=== PATIENT | male | born 1935 | race Caucasian/White ===

== ENCOUNTER 2018-06-21 15:29 | Emergency (ER) | payer MEDICARE ==
[~2018-06-21] VITALS: Ht 160 cm; Wt 77.1 kg
[2018-06-21] MEDS ORDERED: Omeprazole20 M1 (15:54)
[2018-06-21] MEDS ORDERED: TRIA50 (15:54)
[2018-06-21] MEDS ORDERED: TAMS.4ER (15:54)
[2018-06-21 16:10] LABS: BASOPHILS ABSOLUTE AUTO 0.03 K/mm3 (0.00-0.23); BASOPHILS PERCENT AUTO 0 % (0-2); EOSINOPHILS ABSOLUTE AUTO 0.11 K/mm3 (0.00-0.68); EOSINOPHILS PERCENT AUTO 1 % (0-6); Hematocrit 36.6 % (37.0-53.0); Hemoglobin 12.7 g/dL (13.5-17.5); IMMATURE GRAN ABSOLUTE AUTO 0.13 K/mm3 (0.00-0.10); IMMATURE GRAN PERCENT AUTO 1 % (0-1); LYMPHOCYTES ABSOLUTE AUTO 0.78 K/mm3 (0.84-5.20); LYMPHOCYTES PERCENT AUTO 5 % (21-46); MONOCYTES ABSOLUTE AUTO 0.31 K/mm3 (0.16-1.47); MONOCYTES PERCENT AUTO 2 % (4-13); Mean Corpuscular HGB 33.5 pg (26.0-34.0); Mean Corpuscular HGB Conc 34.7 g/dL (31.5-36.5); Mean Corpuscular Volume 97 fL (80-100); Mean Platelet Volume 11.9 fL (9.1-12.4); NEUTROPHILS ABSOLUTE AUTO 14.78 K/mm3 (1.96-9.15); NEUTROPHILS PERCENT AUTO 92 % (41-73); Platelet Count 180 K/mm3 (150-400); RDW Coefficient Variation 13.2 % (11.7-14.2); RDW Standard Deviation 46.5 fL (35.1-46.3); Red Blood Cell Count 3.79 M/mm3 (4.30-5.90); White Blood Cell Count 16.14 K/mm3 (4.00-11.30)
[2018-06-21 16:24] LABS: Alanine Aminotransfer (ALT/SGP 649 U/L (12-78); Albumin, Blood 3.8 g/dL (3.4-5.0); Albumin/Globulin Ratio 1.3 (0.8-1.8); Alk Phos 283 U/L (50-136); Anion Gap 10 mmol/L (6-16); Aspartate Aminotrans (AST/SGOT 601 U/L (12-37); Bilirubin, Total 3.6 mg/dL (0.1-1.0); Blood Urea Nitrogen 28 mg/dL (8-24); Bun/Creatinine Ratio 17.8 (12.0-20.0); CO2, Blood 22 mmol/L (21-32); Calcium, Blood 8.6 mg/dL (8.5-10.1); Chloride, Blood 103 mmol/L (98-108); Creatinine, Blood 1.57 mg/dL (0.60-1.20); Glomerular Filtration Rate 45 (60-); Glucose, Blood 181 mg/dL (70-99); Potassium, Blood 3.7 mmol/L (3.5-5.5); Sodium, Blood 135 mmol/L (136-145); Total Protein, Blood 6.8 g/dL (6.4-8.2); Troponin I <0.015 ng/mL (0.000-0.040)
== END 2018-06-21 21:02 | disposition short-term general hospital (02) ==
LOC: ER 15:29
PROVIDERS: Emergency Medicine
DX: K80.50 Calculus of bile duct without cholangitis or cholecystitis without obstruction (principal); K85.90 Acute pancreatitis without necrosis or infection, unspecified; C61 Malignant neoplasm of prostate; C78.01 Secondary malignant neoplasm of right lung; C79.89 Secondary malignant neoplasm of other specified sites; I10 Essential (primary) hypertension; Z79.899 Other long term (current) drug therapy
CPT/HCPCS: 36415; 70450; 71045; 74176; 80053; 83605; 83690; 84484; 85025; 87040; 93005; 93010; 96361; 96365; 96375; 96376; 99285-25; J0295; J2405; J3010; J7120

== ENCOUNTER → 2020-04-30 | Outpatient (CLI) | payer MEDICARE ==
[~2020-04-30] MED LIST: Acetaminophen650 M1 PO; Aspir 8181 MG PO; CARV3.125 PO; DYAZIDE 37.5-21 EACH PO; LUPRON DEPOT45 M1 IM; OMEP20ER PO; Omeprazole20 M1; Prinivil10 MG PO; TAMS.4ER; TAMS.4ER PO; TRIA50
[2020-04-30 18:32] LABS: BASOPHILS ABSOLUTE AUTO 0.04 K/mm3 (0.00-0.23); BASOPHILS PERCENT AUTO 1 % (0-2); EOSINOPHILS ABSOLUTE AUTO 0.24 K/mm3 (0.00-0.68); EOSINOPHILS PERCENT AUTO 3 % (0-6); Hematocrit 33.1 % (37.0-53.0); Hemoglobin 11.5 g/dL (13.5-17.5); IMMATURE GRAN ABSOLUTE AUTO 0.16 K/mm3 (0.00-0.10); IMMATURE GRAN PERCENT AUTO 2 % (0-1); LYMPHOCYTES ABSOLUTE AUTO 0.98 K/mm3 (0.84-5.20); LYMPHOCYTES PERCENT AUTO 13 % (21-46); MONOCYTES ABSOLUTE AUTO 0.81 K/mm3 (0.16-1.47); MONOCYTES PERCENT AUTO 11 % (4-13); Mean Corpuscular HGB 33.7 pg (26.0-34.0); Mean Corpuscular HGB Conc 34.7 g/dL (31.5-36.5); Mean Corpuscular Volume 97 fL (80-100); Mean Platelet Volume 11.6 fL (9.1-12.4); NEUTROPHILS ABSOLUTE AUTO 5.32 K/mm3 (1.96-9.15); NEUTROPHILS PERCENT AUTO 71 % (41-73); Platelet Count 230 K/mm3 (150-400); RDW Standard Deviation 49.1 fL (35.1-46.3); Red Blood Cell Count 3.41 M/mm3 (4.30-5.90); White Blood Cell Count 7.55 K/mm3 (4.00-11.30)
[2020-04-30 19:16] LABS: Alanine Aminotransfer (ALT/SGP 14 U/L (12-78); Albumin, Blood 3.7 g/dL (3.4-5.0); Albumin/Globulin Ratio 1.2 (0.8-1.8); Alk Phos 64 U/L (50-136); Anion Gap 10 mmol/L (6-16); Aspartate Aminotrans (AST/SGOT 14 U/L (12-37); Blood Urea Nitrogen 25 mg/dL (8-24); Bun/Creatinine Ratio 26.9 (12.0-20.0); CO2, Blood 19 mmol/L (21-32); Calcium, Blood 8.8 mg/dL (8.5-10.1); Chloride, Blood 106 mmol/L (98-108); Creatinine, Blood 0.93 mg/dL (0.60-1.20); Globulin, Blood 3.1 g/dL (2.2-4.0); Glomerular Filtration Rate >60 (60-); Glucose, Blood 96 mg/dL (70-99); Potassium, Blood 3.9 mmol/L (3.5-5.5); Sodium, Blood 135 mmol/L (136-145); Total Protein, Blood 6.8 g/dL (6.4-8.2)
== END | disposition home or self-care (01) ==
LOC: LAB 17:41 → LAB SHORT 17:41
PROVIDERS: Family Medicine
DX: I10 Essential (primary) hypertension (principal)
CPT/HCPCS: 80053; 85025

== ENCOUNTER 2020-12-14 09:40 | Day surgery (SDC) | payer MEDICARE ==
[~2020-12-14] VITALS: Ht 154.9 cm; Wt 69.0 kg
== END 2020-12-14 12:59 | disposition home or self-care (01) ==
LOC: ORSCSDS 09:40
PROVIDERS: Student in an Organized Health Care Education/Training Program
PROC: 0DBK8ZX Excision of Ascending Colon, Via Natural or Artificial Opening Endoscopic, Diagnostic (ICD-10-PCS; principal; 2020-12-14 11:00)
PROC: 0DBM8ZX Excision of Descending Colon, Via Natural or Artificial Opening Endoscopic, Diagnostic (ICD-10-PCS; principal; 2020-12-14 11:00)
PROC: 0DBL8ZX Excision of Transverse Colon, Via Natural or Artificial Opening Endoscopic, Diagnostic (ICD-10-PCS; principal; 2020-12-14 11:00)
PROC: 0DBN8ZX Excision of Sigmoid Colon, Via Natural or Artificial Opening Endoscopic, Diagnostic (ICD-10-PCS; principal; 2020-12-14 11:00)
PROC: 0DBP8ZX Excision of Rectum, Via Natural or Artificial Opening Endoscopic, Diagnostic (ICD-10-PCS; principal; 2020-12-14 11:00)
PROC: 0DBH8ZX Excision of Cecum, Via Natural or Artificial Opening Endoscopic, Diagnostic (ICD-10-PCS; principal; 2020-12-14 11:00)
DX: R19.5 Other fecal abnormalities (principal); K52.831 Collagenous colitis; D12.3 Benign neoplasm of transverse colon; K62.1 Rectal polyp; K57.30 Diverticulosis of large intestine without perforation or abscess without bleeding; K64.8 Other hemorrhoids; I10 Essential (primary) hypertension; Z87.891 Personal history of nicotine dependence
CPT/HCPCS: 88305; 88313; 93005; 93010; J2405; J2704; J7120

== ENCOUNTER → 2021-04-19 | Outpatient (CLI) | payer MEDICARE ==
[2021-04-19 13:44] LABS: BASOPHILS ABSOLUTE AUTO 0.03 K/mm3 (0.00-0.23); BASOPHILS PERCENT AUTO 1 % (0-2); EOSINOPHILS ABSOLUTE AUTO 0.23 K/mm3 (0.00-0.68); EOSINOPHILS PERCENT AUTO 4 % (0-6); Hematocrit 28.3 % (37.0-53.0); Hemoglobin 10.1 g/dL (13.5-17.5); IMMATURE GRAN ABSOLUTE AUTO 0.17 K/mm3 (0.00-0.10); IMMATURE GRAN PERCENT AUTO 3 % (0-1); LYMPHOCYTES ABSOLUTE AUTO 0.89 K/mm3 (0.84-5.20); LYMPHOCYTES PERCENT AUTO 14 % (21-46); MONOCYTES ABSOLUTE AUTO 0.63 K/mm3 (0.16-1.47); MONOCYTES PERCENT AUTO 10 % (4-13); Mean Corpuscular HGB 34.2 pg (26.0-34.0); Mean Corpuscular HGB Conc 35.7 g/dL (31.5-36.5); Mean Corpuscular Volume 96 fL (80-100); Mean Platelet Volume 11.2 fL (9.1-12.4); NEUTROPHILS ABSOLUTE AUTO 4.65 K/mm3 (1.96-9.15); NEUTROPHILS PERCENT AUTO 70 % (41-73); Platelet Count 193 K/mm3 (150-400); RDW Coefficient Variation 13.3 % (11.7-14.2); Red Blood Cell Count 2.95 M/mm3 (4.30-5.90)
[2021-04-19 14:28] LABS: Alanine Aminotransfer (ALT/SGP 14 U/L (12-78); Albumin, Blood 3.6 g/dL (3.4-5.0); Albumin/Globulin Ratio 1.1 (0.8-1.8); Alk Phos 74 U/L (50-136); Anion Gap 9 mmol/L (6-16); Aspartate Aminotrans (AST/SGOT 14 U/L (12-37); Bilirubin, Total 1.1 mg/dL (0.1-1.0); Blood Urea Nitrogen 18 mg/dL (8-24); CO2, Blood 24 mmol/L (21-32); Chloride, Blood 108 mmol/L (98-108); Creatinine, Blood 1.06 mg/dL (0.60-1.20); Ferritin, Serum 210 ng/mL (26-388); Globulin, Blood 3.4 g/dL (2.2-4.0); Glomerular Filtration Rate >60 (60-); Glucose, Blood 118 mg/dL (70-99); Iron Serum 54 ug/dL (65-175); Percent Saturation 21.8 % (20.0-50.0); Potassium, Blood 3.3 mmol/L (3.5-5.5); Sodium, Blood 141 mmol/L (136-145); Total Iron Binding Capacity 248 ug/dL (250-450)
== END ==
LOC: LAB 11:05 → LAB SHORT 11:05
PROVIDERS: Nurse Practitioner Family
DX: D64.9 Anemia, unspecified (principal); R53.83 Other fatigue; R63.4 Abnormal weight loss
CPT/HCPCS: 80053; 82728; 83540; 83550; 84443; 85025

== ENCOUNTER → 2022-09-05 | Outpatient (CLI) | payer OTHER ==
[2022-09-05 14:41] LABS: BASOPHILS ABSOLUTE AUTO 0.04 K/mm3 (0.00-0.23); BASOPHILS PERCENT AUTO 0 % (0-2); EOSINOPHILS ABSOLUTE AUTO 0.38 K/mm3 (0.00-0.68); EOSINOPHILS PERCENT AUTO 4 % (0-6); Hematocrit 28.7 % (37.0-53.0); Hemoglobin 10.1 g/dL (13.5-17.5); IMMATURE GRAN ABSOLUTE AUTO 0.22 K/mm3 (0.00-0.10); IMMATURE GRAN PERCENT AUTO 2 % (0-1); LYMPHOCYTES ABSOLUTE AUTO 1.11 K/mm3 (0.84-5.20); LYMPHOCYTES PERCENT AUTO 11 % (21-46); MONOCYTES ABSOLUTE AUTO 0.97 K/mm3 (0.16-1.47); MONOCYTES PERCENT AUTO 10 % (4-13); Mean Corpuscular HGB 34.4 pg (26.0-34.0); Mean Corpuscular HGB Conc 35.2 g/dL (31.5-36.5); Mean Corpuscular Volume 98 fL (80-100); NEUTROPHILS ABSOLUTE AUTO 7.04 K/mm3 (1.96-9.15); NEUTROPHILS PERCENT AUTO 72 % (41-73); Platelet Count 240 K/mm3 (150-400); RDW Coefficient Variation 12.6 % (11.7-14.2); RDW Standard Deviation 44.9 fL (35.1-46.3); Red Blood Cell Count 2.94 M/mm3 (4.30-5.90); White Blood Cell Count 9.76 K/mm3 (4.00-11.30)
[2022-09-05 14:59] LABS: Albumin, Blood 3.7 g/dL (3.4-5.0); Albumin/Globulin Ratio 1.1 (0.8-1.8); Bilirubin, Total 0.8 mg/dL (0.1-1.0); Bun/Creatinine Ratio 23.8 (12.0-20.0); Calcium, Blood 9.4 mg/dL (8.5-10.1); Creatinine, Blood 1.89 mg/dL (0.60-1.20); Globulin, Blood 3.4 g/dL (2.2-4.0); Potassium, Blood 3.8 mmol/L (3.5-5.5); Total Protein, Blood 7.1 g/dL (6.4-8.2)
== END | disposition home or self-care (01) ==
LOC: LAB SHORT 13:17 → LAB 13:17
PROVIDERS: Nurse Practitioner Family
DX: D64.9 Anemia, unspecified (principal); R05.9 Cough, unspecified; K21.9 Gastro-esophageal reflux disease without esophagitis
CPT/HCPCS: 80053; 85025

== ENCOUNTER 2022-12-12 20:34 | Inpatient (IN) | payer OTHER ==
[~2022-12-12] VITALS: Ht 157.5 cm; Wt 69.1 kg
[2022-12-12] MEDS ORDERED: TORSE20 PO (21:48)
[2022-12-12 21:53] LABS: BASOPHILS ABSOLUTE AUTO 0.03 K/mm3 (0.00-0.23); BASOPHILS PERCENT AUTO 0 % (0-2); EOSINOPHILS PERCENT AUTO 0 % (0-6); Hematocrit 27.2 % (37.0-53.0); Hemoglobin 9.6 g/dL (13.5-17.5); IMMATURE GRAN ABSOLUTE AUTO 0.14 K/mm3 (0.00-0.10); IMMATURE GRAN PERCENT AUTO 1 % (0-1); LYMPHOCYTES ABSOLUTE AUTO 0.77 K/mm3 (0.84-5.20); LYMPHOCYTES PERCENT AUTO 4 % (21-46); MONOCYTES ABSOLUTE AUTO 1.65 K/mm3 (0.16-1.47); MONOCYTES PERCENT AUTO 9 % (4-13); Mean Corpuscular HGB 34.5 pg (26.0-34.0); Mean Corpuscular HGB Conc 35.3 g/dL (31.5-36.5); Mean Corpuscular Volume 98 fL (80-100); Mean Platelet Volume 12.2 fL (9.1-12.4); NEUTROPHILS ABSOLUTE AUTO 16.29 K/mm3 (1.96-9.15); NEUTROPHILS PERCENT AUTO 86 % (41-73); Platelet Count 169 K/mm3 (150-400); RDW Coefficient Variation 12.8 % (11.7-14.2); RDW Standard Deviation 45.6 fL (35.1-46.3); Red Blood Cell Count 2.78 M/mm3 (4.30-5.90); White Blood Cell Count 18.88 K/mm3 (4.00-11.30)
[2022-12-12 22:12] LABS: Albumin, Blood 3.5 g/dL (3.4-5.0); Albumin/Globulin Ratio 0.8 (0.8-1.8); Bilirubin, Total 1.1 mg/dL (0.1-1.0); Bun/Creatinine Ratio 15.3 (12.0-20.0); Calcium, Blood 9.2 mg/dL (8.5-10.1); Creatinine, Blood 2.29 mg/dL (0.60-1.20); Globulin, Blood 4.2 g/dL (2.2-4.0); Potassium, Blood 3.8 mmol/L (3.5-5.5); Total Protein, Blood 7.7 g/dL (6.4-8.2)
[2022-12-12] MEDS ORDERED: XTANDI40 MG PO (23:40)
[2022-12-13] MEDS ORDERED: SEROQUEL25 MG PO (00:54)
[2022-12-13 01:46] VITALS: BP 127/86
--- NOTE | 2022-12-13 02:30 | NUR ---
PT COMMENCED ON TELE: TECH REPORTS NSR W/BBB AND ST ELEVATION AT 90'S-100'S BPM. VSS AND HE'S ASYMPTOMATIC OF CARDIAC DISTRESS. ALERTED W/NO NEW ORDERS RECIEVED AT THIS TIME.
--- NOTE | 2022-12-13 04:51 | NUR ---
SUMMARY: PT A/OX3-4, IS [place] AND HAS IMPAIRED VISION TO R.EYE BUT IS PLEASANT AND COOPERATIVE W/CARE AND ABLE TO SPECIFY NEEDS. HE'S SBA FOR W/BED ALARM ON FOR FALL RISK AND POSSIBLE FORGETFULLNESS/IMPULSIVITY. HE REPORTS OCC.CANE/FWW FOR RECENT WEAKNESS BUT TYPICALLY PERFORMS MOST ADL'D INDEPENDENTLY. PT WEARS PULLUP FOR URGE INCONTINENCE AND TAMMI CARE PROVIDED PRN. STAFF UNABLE TO OBTAIN UA D/T NO VOID SINCE ARRIVAL TO UNIT IN PRESENCE OF HEMAL ON CKD3. ADDITIONALLY, MD SPECULATES DEHYDRATION FROM LACKING APPETITE AND FLUID INTAKE RECENTLY. BLADDER SCAN WAS NEGLIGABLE AND RENAL U/S + MRI PLANNED TODAY. NS INFUSES AT 200 ML/HR AND IV + PO ABX RECIEVED FOR POSSIBLE UTI/PNM. PT HAD SLIGHT WHEEZES TO UPPER LOBES BUT SPO2 WNL ON RA W/O S/S RESP DISTRESS. HE'S NSR W/BBB AND ST ELEVATION ON TELE, VSS/AFEBRILE, PT DENIES CARDIAC SYMPTOMS. AWARE AND NO NEW ORDERS. NO ACUTE CHANGES. WCTM AND REPORT TO DAY RN.
[2022-12-13 05:39] LABS: Bun/Creatinine Ratio 18.2 (12.0-20.0); Calcium, Blood 8.9 mg/dL (8.5-10.1); Creatinine, Blood 1.92 mg/dL (0.60-1.20); Potassium, Blood 3.6 mmol/L (3.5-5.5)
[2022-12-13 08:03] VITALS: BP 131/102
--- NOTE | 2022-12-13 13:08 | NUR ---
Pt resting in bed and is [place]. Difficult to assess Pt's orientation due to [place]. Pt does appear confused as evidenced by occasional non sensical conversations Pt engages in. Pt's Aydee, son Davin is at bedside with daughter Cordelia on speaker phone. Engaged in therapeutic discussion regarding advanced care planning. Educated on disease process including trajectory and the importance of planning for the future. Discussed hospice as an option. Offered therapeutic listening and answered questions. Family appears to be considering hospice but would like to know what the MRI results are. Discussed code status with family reporting Pt is a DNR. Spoke with Dr Reynaga and discussed case. Placed DNR order in [facility] per V/O from Dr Reynaga. Palliative Care will remain available for supportive and therapeutic visits.
--- NOTE | 2022-12-13 14:02 | NUR ---
F/U visit this afternoon. Pt resting in bed and appears comfortable. Family at bedside. Offered therapeutic listening and answered questions. Family requests hospice services upon D/C from the hospital. Discussed hospice agencies to choose from with family choosing [facility]. Family reports Pt has had a significant decrease in his appetite, requires assistance with bathing, dressing, ambulation, and occasional toileting. Spoke with RN Cody Pruett and reported family's choice for hospice agencies. ADLs 4/6 KPS 50% Palliative Care will remain available
[2022-12-13 15:37] VITALS: BP 149/57
--- NOTE | 2022-12-13 15:58 | NUR ---
Spiritual care visit conducted. Patient is lying in bed and alert. Spouse, Aydee and son Davin are present. They share with me about the hospice election, the patient's family, career and needs going forward. Patient is [place] and so communication is strained. Family informed me of patient's love for God and the Bible and so I recited inspiring quotes from the Bible in my prayer as I prayed to God for the patient and family. Patient is easily encouraged and is able to laugh deeply which seemed to be healing to both patient and family. I will continue to remain available to patient and family.
--- NOTE | 2022-12-13 18:04 | NUR ---
SHIFT NOTE PT AWAKE. [place]. HAS HEARING AIDES. FAMILY TO BRIK AIDES IN. VSS. MET WITH [facility]. CODE STATUS CHANGED TO DNR. PLACED BAND ON LEFT WRIST. PT REMOVED. BED ALARM ON. BED LOW AND HE IS WEARING SLIP SOCKS. CALL LIGHT WITH IN REACH. HE HAS HAD 2 LARGE DIARREAL STOOLS. USED BSC. POOR APPETITE. LARGE AMOUNT OF FAMILY HERE TODAY. CONTINUE POC.
[2022-12-13 19:27] VITALS: BP 135/104
--- NOTE | 2022-12-13 20:13 | NUR ---
PT TRANSFER TO ROOM 346. PT TRANSFERED TO ROOM 346. HANDOFF GIVEN TO ROOM 346 NURSE
[2022-12-14 02:51] VITALS: BP 102/75
--- NOTE | 2022-12-14 05:33 | NUR ---
SHIFT SUMMARY PT BROUGHT TO ROOM VIA GEORGINA, REPORT FROM IVONNE REY RN - CONCERNS OF PT FALLING OR HARMING SELF D/T CONFUSION- PT ATTEMPTING TO PULL IV OUT- COVERED THE IV WITH COBAN FOR SECUREMENT AND KEEP FROM PT SEEING THE LINE- 2244 PT SET OFF BED ALARM GETTING OUT OF BED, STAFF FOUND HIM OUT OF BED AND PULLING ON IV- [place]ON BILLINGS WENT TO ASSIST THE PT AND PT PUSHED AT HER AND WENT IN TO BATHROOM- 2299 SOFT RESTRAINTS PUT ON PT FOR SAFETY OF PT AND STAFF- DAVID DUNNE CALLED FOR ORDER, PT TOLERATED RESTRAINTS WELL- RESTRAINTS WERE RELEASED EVERY 2 HOURS, WATER OFFERED OFTEN T/O NIGHT TO PATIENT, ASSISTED PT TO USE URINAL AND ASSISTED PT TO BR AND PT UNABLE TO FOLLOW DIRECTIONS AND STARTED TO GET AGITATED, PT INCONTIENT MULTIPLE TIMES IN NIGHT, 0500 PT REFUSED TO TAKE PRILOSEC IN AM- PT SPIT THE PILL OUT AND THREW ACROSS THE ROOM, IGNITION RISK ASSESSMENT DONE, PT CONFUSED - NO IGNITION DEVICES IN BELONGINGS, BED LOW POSITION, CALL LIGHT WITHIN REACH
[2022-12-14 06:02] LABS: Hematocrit 22.9 % (37.0-53.0); Hemoglobin 7.8 g/dL (13.5-17.5); Mean Corpuscular HGB 34.2 pg (26.0-34.0); Mean Corpuscular HGB Conc 34.1 g/dL (31.5-36.5); Mean Corpuscular Volume 100 fL (80-100); Mean Platelet Volume 12.2 fL (9.1-12.4); Platelet Count 81 K/mm3 (150-400); RDW Coefficient Variation 12.9 % (11.7-14.2); Red Blood Cell Count 2.28 M/mm3 (4.30-5.90); White Blood Cell Count 9.83 K/mm3 (4.00-11.30)
[2022-12-14 06:31] LABS: Albumin, Blood 2.5 g/dL (3.4-5.0); Anion Gap 13 mmol/L (6-16); Blood Urea Nitrogen 20 mg/dL (8-24); Bun/Creatinine Ratio 18.2 (12.0-20.0); CO2, Blood 15 mmol/L (21-32); Calcium, Blood 8.1 mg/dL (8.5-10.1); Chloride, Blood 111 mmol/L (98-108); Glomerular Filtration Rate 65 (60-); Glucose, Blood 107 mg/dL (70-99); Potassium, Blood 3.6 mmol/L (3.5-5.5); Sodium, Blood 139 mmol/L (136-145)
[2022-12-14 07:14] VITALS: BP 155/83
[2022-12-14 08:10] LABS: IRON BIND.CAP.(TIBC) 193 ug/dL (250-450); IRON SATURATION 6 % (15-55); IRON, SERUM 12 ug/dL (38-169); UIBC 181 ug/dL (111-343)
--- NOTE | 2022-12-14 11:48 | NUR ---
Spoke with Primary THIERRY Casillas and discussed case. Pt having significant agitation and anxiety. Discussed options such as medication change and comfort care. Spoke with Dr Reynaga and discussed case. Reviewed medications and discussed options. Dr Reynaga will make adjustements in medication regimen. Pt may also being experiencing pain which could be contributing towards agitation. Primary THIERRY Casillas unavailable during F/U. Reviewed plan with covering THIERRY Laurent. Palliative Care will remain available
[2022-12-14 15:57] VITALS: BP 144/70
--- NOTE | 2022-12-14 16:49 | NUR ---
SUMMARY- PT SEVERELY CONFUSED, WAS AGGITATED AND COMBATIVE THIS AM. CALLED DR RICHARD AND RECEIVED ORDER FOR HALDOL IV WHICH SEEMED TO AID IN CALMING PT AFTER GIVEN X2. ALSO MEDICATED WITH VICODIN CRUSHED, PT THAN CALMED AND APPEARS RESTING QUIET WITH EYES CLOSED FOR ABOUT 4 HOURS. WOULD AWAKEN EASILY. WHEN AWAKENED, STARTE TRYING TO PULL AT LINES AND GET OOB. PT INCONT URINE, INFUSED 1L IVF. FAMILY IN TO VISIT FOR ABOUT AN HOUR, STATE THEY WILL BE BACK TONIGHT- PLAN FOR PT TO DISCHARGE TOMORROW ON HOSPICE
[2022-12-14 20:57] VITALS: BP 151/109
[2022-12-15 05:19] VITALS: BP 150/103
--- NOTE | 2022-12-15 06:26 | NUR ---
SHIFT SUMMARY PT LAYING IN BED DURING BEDSIDE ROUNDS, HAYDER AND OTHER MEMBERS OF FAMILY IN AT BEDSIDE, DISCUSSED QUESTIONS RE: HOSPICE, BED SIDE COMMODE, AND MEDICATIONS AT HOME. PT IN SOFT RESTRAINTS BILAT WRIST, FAMILY REQUESTED THAT PT BE ASSISTED TO BR, EXPLAINED TO FAMILY THE RISK OF PT AMBULATING TO BATHROOM, DUE TO CONFUSION. ASSISTED PT WITH URINAL = PT UNABLE TO URINATE AT BEGINNING OF SHIFT AND WAS INCONTIENT OF URINE, PT BELONGINGS ASSESSED FOR IGNITION ITEMS, NONE FOUND- UNABLE TO ASK PT D/T CONFUSION, PT WOKE UP AROUND 0015 AND USED URINAL = PT BRIEF HAD MODERATE AMOUNT OF URINE IN IT AND PT URINATED 150ML DAISY COLORED URINE IN THE URINAL, PT DRANK AN ENSURE AND ATE PUDDING WITHOUT PROBLEMS, PT RETURNED TO SLEEPING, RESTRAINTS MONITORED AND RELEASED PER PROTOCOL, PT REPOSITIONED T/O NIGHT- BED LOW POSITION, CALL LIGHT WITHIN REACH, BED ALARM IN PLACE
[2022-12-15 07:34] VITALS: BP 149/67
--- NOTE | 2022-12-15 10:29 | NUR ---
Pt resting in bed with his eyes closed. Pt appears comfortable with no S/S of distress at this time. Pt's spouse Aydee at bedside. Assisted spouse with completing POLST for Pt. Aydee is in agreement with plan for Pt to D/C home with [facility] services today. Obtained copy hospitalist signature for POLST. Obtained copy of POLST and sent to medical records via hospital tube system. Provided original POLST to spouse and instructed to take home and hang on refridgerator. Dr Reynaga writes prescriptions for Pt of Ativan and Roxinol. Obtained copies of prescriptions and delivered to [facility]. Handed original prescriptions to spouse and instructed her to them filled and Pt's local pharmacy. Palliative Care will remain available
--- NOTE | 2022-12-15 11:37 | NUR ---
DISCHARGE SUMMARY PT DISCHARGED TO HOME ON HOSPICE. PT LEFT ROOM VIA [facility] AT ABOUT 1110 WITH CURT VILLALPANDO RN PRESENT. NO IV'S IN PLACE AT TIME OF DC. ALL BELONGINGS RETURNED. THIS NURSE WAS IN CONTACT WITH PATIENT'S SPOUSE ABOUT TRANSPORTING HOME, ALL QUESTIONS ANSWERED.
[2022-12-15 14:12] LABS: FERRITIN 612 ng/mL (30-400)
== END 2022-12-15 11:13 | disposition hospice, home (50) | DRG 871 ==
LOC: ER 20:34 → MEDS 23:27 → ER 12-13 01:30 → MEDS 12-13 01:46 → ENPENDDIS 12-15 11:01 → MEDS 12-15 11:13
PROVIDERS: Internal Medicine; Student in an Organized Health Care Education/Training Program; ADMIT Internal Medicine
DX: A41.9 Sepsis, unspecified organism (principal); G92.8 Other toxic encephalopathy; J18.9 Pneumonia, unspecified organism; N17.9 Acute kidney failure, unspecified; E87.1 Hypo-osmolality and hyponatremia; C79.51 Secondary malignant neoplasm of bone; I67.89 Other cerebrovascular disease; Z66 Do not resuscitate; Z51.5 Encounter for palliative care; F03.90 Unspecified dementia, unspecified severity, without behavioral disturbance, psychotic disturbance, mood disturbance, and anxiety; R65.20 Severe sepsis without septic shock; K21.9 Gastro-esophageal reflux disease without esophagitis; C61 Malignant neoplasm of prostate; N18.30 Chronic kidney disease, stage 3 unspecified; I12.9 Hypertensive chronic kidney disease with stage 1 through stage 4 chronic kidney disease, or unspecified chronic kidney disease; D63.1 Anemia in chronic kidney disease; Z79.82 Long term (current) use of aspirin; Z79.899 Other long term (current) drug therapy; Z91.041 Radiographic dye allergy status; Z98.890 Other specified postprocedural states; Z78.1 Physical restraint status
CPT/HCPCS: 36415; 70450; 70553; 71045; 76770; 80048; 80053; 80069; 82728; 83540; 83550; 83605; 83735; 84145; 85025; 85027; 87040; 93005; 93010; 96361; 96365; 99285-25; A9270; A9579; J0456; J0696; J1630; J1644; J2060; J7030; J7050